=== PATIENT | male | born 1980 | race Caucasian/White ===

== ENCOUNTER 2019-06-15 01:59 | Emergency (ER) | payer SELFPAY ==
[~2019-06-15] VITALS: Ht 157.5 cm; Wt 71.3 kg
[2019-06-15 02:18] VITALS: Ht 157.5 cm; Wt 71.3 kg
[2019-06-15 05:26] VITALS: BP 128/83
== END 2019-06-15 05:26 | disposition home or self-care (01) ==
LOC: ED 01:59
DX: S00.412A Abrasion of left ear, initial encounter (principal); S80.812A Abrasion, left lower leg, initial encounter; S80.811A Abrasion, right lower leg, initial encounter; R21 Rash and other nonspecific skin eruption; V49.9XXA Car occupant (driver) (passenger) injured in unspecified traffic accident, initial encounter; Y93.89 Activity, other specified; Y92.89 Other specified places as the place of occurrence of the external cause; Y99.8 Other external cause status
CPT/HCPCS: J1885; Q0163